=== PATIENT | male | born 1960 | race Caucasian/White ===

== ENCOUNTER 2020-08-13 10:36 | Outpatient (CLI) | payer MEDICARE, SELFPAY ==
--- NOTE | ~2020-08-13 | MR_ITS ---
EXAMINATION: MR humerus RT wo con DATE: 08/13/2020 12:12 INDICATION: Biceps tendon rupture TECHNIQUE: Magnetic resonance imaging (MRI) of the right humerus/upper arm was performed without intr avenous contrast. A marker was placed over the mass. Sequences included axial, sagittal and coronal T1-weighted FSE and fluid sensitive FSE STIR. COMPARISON: None. FINDINGS: Full-thickness tear of the long head of the biceps tendon which is retracted distally approximately 1 0 cm below the cephalad margin of the intertubercular groove. There is mild increased muscle signal a nd small amount of proximal epimysial fluid about the long head of the muscle belly. The visualized portion of the more distal biceps brachii tendon appears normal. Moderate to severe glenohumeral oste oarthritis with moderate size marginal osteophytes about the humeral head. There are small foci of ma gnetic field artifact along the anterior and inferior glenoid likely related to prior labral repair. There appears be diffuse labral tear/degeneration over assessment is not considered diagnostic on the larger field of view images of the upper arm as opposed to smaller field of view of a standard [facility] MRI. There is tendinopathy and likely partial tear along the lesser tuberosity footplate of the s ubscapularis tendon with asymmetric mild fatty atrophy of the subscapularis muscle belly relative to the remainder of the rotator cuff musculature. Small right glenohumeral joint effusion. IMPRESSION: 1. Complete tear of the long head biceps tendon with caudal retraction of the tear margin to [address] to the proximal margin of the intertubercular groove. 2. Moderate to severe right glenohumeral osteoarthritis with small joint effusion. 3. Likely diffuse right glenoid labral tear/degeneration with changes of prior tear at the anterior a nd inferior glenoid. Assessment of the labrum is however not considered diagnostic due to the signifi cantly lower resolution than a standard shoulder MRI resulting from the significantly larger field of view of imaging. Reviewed, dictated and finalized at location A. IMPRESSION: 1. Complete tear of the long head biceps tendon with caudal retraction of the t ear margin to 10 cm distal to the proximal margin of the intertubercular groove . 2. Moderate to severe right glenohumeral osteoarthritis with small joint effusi on. 3. Likely diffuse right glenoid labral tear/degeneration with changes of prior tear at the anterior and inferior glenoid. Assessment of the labrum is however not considered diagnostic due to the significantly lower resolution than a [facility] shoulder MRI resulting from the significantly larger field of view of imag ing.
== END 2020-08-13 10:37 ==
PROVIDERS: PCP Physician Assistant; Visit Provider Physician Assistant
DX: M66.829 Spontaneous rupture of other tendons, unspecified upper arm (principal); S46.111A Strain of muscle, fascia and tendon of long head of biceps, right arm, initial encounter; M19.011 Primary osteoarthritis, right shoulder; M25.411 Effusion, right shoulder
CPT/HCPCS: 73218

== ENCOUNTER 2024-08-05 15:19 | Outpatient (CLI) | payer MEDICARE, SELFPAY ==
--- NOTE | ~2024-08-05 | US_ITS ---
LEFT LOWER EXTREMITY VENOUS ULTRASOUND Ordering provider: Naseem Shaffer, TK History: . lt leg swelling . Comparison: None. FINDINGS: --COMMON FEMORAL: Patent and free of thrombus. Normal compressibility, phasic flow and augmentation. --PROXIMAL SUPERFICIAL FEMORAL: Patent and free of thrombus. Normal compressibility, phasic flow and augmentation. --DISTAL SUPERFICIAL FEMORAL: Patent and free of thrombus. Normal compressibility, phasic flow and au gmentation. --POPLITEAL: Patent and free of thrombus. Normal compressibility, phasic flow and augmentation. --POSTERIOR TIBIAL: Patent and free of thrombus. Normal compressibility, phasic flow and augmentation . Lymph node is seen in the left groin measuring 4 x 0.8 x 2.3 cm. IMPRESSION: Negative left lower extremity venous US. No deep vein thrombosis. Reviewed, dictated and finalized at location A.
--- NOTE | ~2024-08-05 | XR_ITS ---
XR knee LT 3V Ordering provider: Naseem Shaffer, PA History: . Lt leg swelling ACUTE NON INJ CHRONIC PAIN LAT TO PATELLAR . Comparison: None. FINDINGS: BONES: No acute fracture or dislocation. JOINT SPACES: Normal. SOFT TISSUES: Normal. IMPRESSION: No acute osseous abnormality left knee. Reviewed, dictated and finalized at location A.
--- OUTSIDE RECORDS SUMMARY | 2024-08-05 17:46 | XMS_ITS | Continuity of Care Document ---
Author Organization [facility] ([facility]) Address [address] [place] [address] Care Team Providers Care Silk Screen Printer Helper Name Role Phone JAYLEN CHAVARRIA Primary Care Provider [phone] Assessment No assessment recorded. Plan of Treatment Reminders Order Date Submit Date Provider Last Modified By Organization Details Last Modified Time Details Appointments None recorded. Lab lipid panel, serum 2024 025 [facility], [address] [place] [address], [facility] [address], [place], [address], 5 10:14:07 CBC w/ auto diff 2024 025 [facility], [address] [place] [address], [address], [place], [address], 5 10:14:13 CMP, serum or plasma 2024 025 [facility], [address] [place] [address], [facility] [address], [place], [address], 5 10:14:09 HbA1c (hemoglobin A1c), blood 2024 025 [facility], [address] [place] [address], [address], [place], [address], 5 10:14:11 vitamin D, 25-hydroxy, total, serum 2024 025 [facility], [address] [place] [address], [facility] [address], [place], [address], 10:14:14 HIV 1 + 2, meaningful use set 2024 025 [facility], [address] [facility], [address], [place], [address], 10:14:16 TSH, ultra-sensi tive, serum 2024 025 [facility], [address] [facility] [address], [address], [place], [address], 10:14:10 Referral None recorded. Procedures None recorded. Surgeries None recorded. Imaging XR, knee, 3 view 2024 025 [facility] ([facility]), [facility], [place], [address], 17:43:53 US, duplex, venous, lower extremity, complete 2024 025 [facility], [address], [place], [address], 17:28:37 Medication Orders omeprazole 40 mg capsule,del ayed release 2024 025 [facility], [address] [place] [address], [id number], 17:19:34 Patient TargetsNo targets recorded. Patient Instructions Encounter Date Encounter Id Patient Instructions Last Modified By Organization Details Last Modified Time 08/04/2024 [id number] A healthy lifest yle: care instructions [email or web address] Not available 08/04/2024 16:49:55 gastroesophageal reflux disease (GERD): care instructions [email or web address] Not available 08/04/2024 16:49:55 Reason for Referral None Reported. Results Created Date Observation Date Name Description Value Unit Range Abnormal Flag Note LastModifiedBy Organization Detail LastModifiedTime 08/06/192025 US, duple x, venou s, lower extre mity, compl ete No observ ation record ed. [address], [place], [address], 08/05/2024 17:28:37 08/06/19 25 08/05/2024 US, duple x, venou s, lower extre mity, compl ete No observ ation record ed. [address], [place], [address], 08/05/2024 17:30:32 08/06/19 25 08/05/2024 XR, knee, 3 view No observ ation record ed. [address] [facility], [place], [address], 08/05/2024 17:43:53 08/06/19 25 08/05/2024 XR, knee, 3 view No observ ation record ed. [address] [facility], [place], [address], 08/05/2024 18:13:45 Result Notes None recorded. Problems Name Problem SNOMED Code Status Onset Date Resolution Date Notes Provider Name and Address Organization Details Recorded Time Depressi ve disorder 90525862 Active 2017 Soheila Pugh PA-C Attn: Accounting ,[address] [place], [address] , [facility] 8 15:59:40 Vitamin D deficien cy 81554764 Active 2017 Soheila Pugh PA-C Attn: Accounting ,[address] [place], [address] , [facility] 8 14:00:22 Leukocyt osis 441805810 Active 2017 Soheila Pugh PA-C Attn: Accounting ,[address] [place], [address] , [facility] 8 15:53:48 Upper chest pain 899780885 Completed 201712/15/2018 TK CRUMP Attn: Accounting ,[address] [facility], [place], [address] , [place] [facility] 9 12:21:16 Thoracic back pain 914731957 Active 2017 Tone Velazquez MD Attn: Accounting ,[address] [facility], [place], [address] , [place] [facility] 8 17:08:22 Ankle pain 374344858 Active 2017 Soheila Pugh PA-C Attn: Accounting ,[address] [facility], [place], [address] , [place] [facility] 8 09:08:58 Prostate specific antigen above referenc e range 502988973 Active 2018 Was 1.8 on 12/15/18 TK CRUMP Attn: Accounting ,[address] [place], [address] , [place] [facility] 9 08:42:33 Gastroes ophageal reflux disease 320788132 Active 2023 SWAPNA FOX PA-C Attn: Accounting ,[address] [facility], [place], [address] , [place] [facility] 4 16:01:33 Dizzines s 590645081 Active Soheila Pugh PA-C Attn: Accounting ,[address] [place], [address] , [place] [facility] 5 18:08:05 Fracture of cervical spine 978433166 Active Occured 2010 - 2013 Soheila Pugh PA-C Attn: Accounting ,[address] [facility], [place], [address] , [place] [facility] 5 14:30:49 Eczema 07047910 Active Soheila Pugh PA-C Attn: Accounting ,[address] [facility], [place], [address] , [place] [facility] 5 21:00:50 Blood glucose outside referenc e range 403189178 Active 5.7 on 12/15/18 TK CRUMP Attn: Accounting ,[address] [facility], [place], [address] , [facility] 9 08:39:34 Tobacco dependen ce syndrome 36117739 Active Soheila Pugh PA-C Attn: Accounting ,[address] [facility], [place], [address] , [facility] 6 16:26:02 Hand pain 27661824 Active Soheila Pugh PA-C Attn: Accounting ,[address] [facility], [place], [address] , [facility] 5 14:20:39 Hypercho lesterol emia 58041256 Active Soheila Pugh PA-C Attn: Accounting ,[address] [facility], [place], [address] , [facility] 6 14:09:54 Problem Notes None recorded. Procedures Surgical History Date Name Laterality Status Provider Name and Address Organization Details Recorded Time 02/25/2013 Other completed [facility] 12/15/2014 16:24:37 02/25/1997 Other completed [facility] 12/15/2014 16:24:37 Imaging Results None recorded. Procedure Notes None recorded. Medical Equipment None Reported. Allergies No known drug allergies Medications Name Sig Start Date Stop Date Status Note LastModified by Organization Details LastModified Time cyclobenzap rine 10 mg tablet Take 1 tablet 3 times a day by oral route as needed for 14 days. 09/23 completed Not Available Not Available Not Available atorvastati n 40 mg tablet TAKE 1 TABLET BY MOUTH IN THE EVENING FOR CHOLESTER OL 10/08 completed Not Available Not Available Not Available prednisone 10 mg tablet TAKE ONE TABLET BY MOUTH THREE TIMES A DAY FOR 7 DAYS, TAPER TO 1 TABLET ONCE DAILY FOR 7 DAYS. TAKE WITH FOOD. NO NSAIDS WHILE ON STEROIDS. 09/23 completed Not Available Not Available Not Available ketoconazol e 2 % shampoo APPLY TO THE AFFECTED AREA(S), LATHER, LEAVE IN PLACE FOR 5 MINUTES, AND THEN RINSE OFF WITH WATER BY TOPICAL ROUTE TWICE PER WEEK X 8 WEEKS 12/16 completed Not Available Not Available Not Available triamcinolo ne acetonide 0.5 % topical cream APPLY A THIN LAYER TO THE AFFECTED AREA(S) BY TOPICAL ROUTE 2 TIMES PER DAY 01/01 completed Not Available Not Available Not Available ibuprofen 800 mg tablet 01/01 completed Not Available Not Available Not Available hydrocodone 5 mg-acetamin ophen 325 mg tablet Take 1 tablet every 12 hours by oral route as needed for 7 days. 10/08 completed Not Available Not Available Not Available clobetasol 0.05 % topical cream APPLY A THIN LAYER TO THE AFFECTED AREA(S) BY TOPICAL ROUTE 2 TIMES PER DAY X 7 DAYS 12/16 completed Not Available Not Available Not Available triamcinolo ne acetonide 0.5 % topical ointment APPLY GRAM TOPICALLY TO THE AFFECTED AREA TWICE DAILY 09/23 completed Not Available Not Available Not Available omeprazole 40 mg capsule,del ayed release Take 1 capsule every day by oral route as needed for 90 days. 2024 active Not Available Not Available Not Avai lable aspirin 81 mg tablet,ariel yed release Take 1 tablet every day by oral route as directed for 30 days. 2022 active Not Available Not Available Not Avai lable famotidine 20 mg tablet TAKE ONE TABLET BY MOUTH TWICE DAILY. 10/08 completed Not Available Not Available Not Available hydrocodone 7.5 mg-acetamin ophen 325 mg tablet 01/01 completed Not Available Not Available Not Available cephalexin 500 mg capsule 01/01 completed Not Available Not Available Not Available Vitamin D2 1,250 mcg (50,000 unit) capsule TAKE 1 CAPSULE(S ) EVERY WEEK BY ORAL ROUTE. 12/16 completed Not Available Not Available Not Available amoxicillin 875 mg-potassiu m clavulanate 125 mg tablet 01/01 completed Not Available Not Available Not Available Vitals Date Recorded Body height Body mass index (BMI) Body weight Oxygen saturation Oxygen saturation in Arterial blood by Pulse oximetry Heart rate Systolic blood pressure Diastolic blood pressure Provider Name and Address Organization Details Last Updated DateTime 5 180.34 cm 27.8 kg/m2 19802.8 8 g 99 % 99 % 75 /min 110 mm[Hg] 70 mm[Hg] Kasia Lainez MA [place] 16:09:24 Social History Question Answer Notes LastModified by Organizat ion Details LastModified Time Tobacco Smoking Status Current Every Day Smoker Nitesh Cardona MA null, [place] 12/15/2014 16:24:37 What Is Your Level Of Caffeine Consumption? Heavy Information not available 12/15/2014 What Type Of Diet Are You Following? REGULAR Information not available 12/15/2014 Education 12 Information no t available 12/15/2014 Live Alone Or With Others? Alone Information not available 12/15/2014 What Was The Date Of Your Most Recent Tobacco Screening? 09/24/2023 [email or web address] Information not available 09/24/2023 How Many Children Do You Have? 1 Information not available 12/15/2014 Are You Sexually Active? No Information not available 12/15/2014 How Much Tobacco Do You Smoke? 0.5 PPD [email or web address] Information not available 12/15/2014 On What Date Was Tobacco Cessation Counseling Provided? 10/08/2022 [email or web address] Information not available 10/08/2022 How Many Years Have You Smoked Tobacco? 47 [email or web address] Information not available 12/15/2014 Sex: Unknown Functional Status Question Answer Note LastModified by Organizat ion Details LastModified Time What is your level of alcohol consumption? None Information not available 12/15/2014 Are you currently employed? No Information not available 12/15/2014 What is your occupation? unemployed Information not available 12/15/2014 Mental Status None recorded. Family History Relationship Description Onset Age of this Age Resolved Age Notes LastModified by Organization Details LastModified Time Mother Hypertensive disorder Not available 2015 14:23:08 Father Malignant neoplasm of bone [email or web address] Not available 2015 14:23:08 Sister Hypertensive disorder [email or web address] Not available 2015 14:23:08 Sister Malignant tumor of breast [email or web address] Not available 2015 14:23:08 Brother Heart disease [email or web address] Not available 2015 14:23:08 Brother Hypertensive disorder Not available 2015 14:23:08 Brother Malignant neoplasm of prostate [email or web address] Not available 2015 14:23:08 Medical History Condition Response Acid Reflux (GERD) Y Other Y Headaches Y Depression Y Immunizations Vaccine Type Date Status Note Provider Nam e and Address Organization Details Recorded Time zoster recombinant 4 completed Not Available [facility] 08/04/2024 15:47:35 Influenza, split virus, quadrivalent, preservative 8 completed Not Available [facility] 03/14/2019 02:36:32 Tdap 8 completed Not Available [facility] 03/14/2019 02:36:56 Influenza, split virus, quadrivalent, preservative 9 completed Not Available [facility] 03/14/2019 02:47:16 Influenza, split virus, quadrivalent, preservative 0 completed Norma Stacy [place] null, [place] [facility] 12/18/2019 08:57:31 influenza, unspecified formulation 6 completed Tara Ortiz [place], [place] [facility] 01/31/2016 15:09:36 Influenza, split virus, quadrivalent, preservative 3 completed India Jones [place], [place] [facility] 12/25/2022 13:23:26 Influenza, split virus, quadrivalent, preservative 5 completed Not Available [facility] 03/14/2019 02:41:24 Influenza, split virus, trivalent, preservative 4 completed India Jones [place] null, [place] [facility] 12/04/2023 08:02:26 Past Encounters Encounter ID Performer Location Encounter Start Date Encounter Closed Date Diagnosis/Indication Diagnosis SNOMED-CT Code Diagnosis ICD10 Code Diagnosis Note [id number] Samantha Tesfaye MD [facility] (Adult Med) [address] [place] [address] 08/04/2024 15:41:44 08/05/2024 10:07:42 Depression screening 496807246 Z13.31 PHQ9- Negative (2 out of 27) Mental [facility] screening 094278998 Z13.30 GAD7- Negative (2 out of 21) Overweight 506183052 E66 .3 BMI 27.8 Swelling o f left lower limb 864093683 M79.89 Advised patient to go to hospital today for STAT US for possible DVTU/S ordered- pt wanting imaging done at [facility] Hypercholesterolemia 136 23603 E78.2 Gastroesop hageal reflux disease 384142494 K21.9 C/W omeprazole 40mg Adult heal th examination 097275443 Z00.00 routine labs ordered Pain of le ft knee joint 3519411758 29703 M25.562 XR ordered Health Concerns Section Related Observation LastModified by Organization Detai ls LastModified Time None Recorded Concern Status LastModified by Organization Details LastModified Time None Recorded Payers Encounter Date Sequence Insurance Name Policy Number Policy Ontiveros Covered Member ID Ontiveros Member ID Guarantor Name 08/04/[address] [facility] (MEDICARE REPLACEMENT/A DVANTAGE - HMO) [id number] Aurelio Hemphill [id number] Aurelio Hemphill Notes Date Note Type Note Provider Name and Address Organization Details Recorded Time 08/04/2024 text/html 64 y/o M here c/o L knee pain. Pt states knee pain started after having wallet in L back pocket and sitting on it. Pt states pain started around 05/28/24. He started wearing a knee type brace, which he states relieves the pain d/t the pressure on his knee. States the pain travels from the lateral aspect of his knee to the dorsal aspect towards his patella.Pt then stated his leg has been swelling as well. He has noticed his L leg swelling more than normal. His R leg stays normal, but his L leg swells from the knee down. It has progressively gotten worse and swells more as the day goes by. Pt denies pain with walking. Pt also denies SOB, CP, MOHAMUD.Pt is also requesting refills on his GERD medication and wanting labs done today as he is fasting. SWAPNA FOX PA-C Attn: Accounting,[address] [facility], [place], [address], [facility] 08/04/2024 20:56:14
--- OUTSIDE RECORDS SUMMARY | 2024-08-05 17:46 | XMS_ITS | Data Portability ---
Author Organization [facility] ROMINASarai Address [address] [place] [address] Care Team Providers Care Clothes Designer Name Role Phone JAYLEN CHAVARRIA Primary Care Provider Assessment No assessment recorded. Plan of Treatment Reminders Order Date Submit Date Provider Last Modified By Organization Details Last Modified Time Details Appointments None recorded. Lab lipid panel, serum 2024 025 [facility], [facility] [address], [place], [address], 5 10:14:07 CBC w/ auto diff 2024 025 NISREEN CODI, [address] [place] [address], [facility] [address], [place], [address], 5 10:14:13 CMP, serum or plasma 2024 025 [facility]EN LABANGEL, [facility], [facility] [address], [place], [address], 5 10:14:09 HbA1c (hemoglobin A1c), blood 2024 025 NISREEN KINCAID, [facility] [address], [address], [place], [address], 5 10:14:11 vitamin D, 25-hydroxy, total, serum 2024 025 NISREEN CODI, [address] [place], [place] [address]chris Fabrizio, [facility] [address], [place], [address], 5 10:14:14 HIV 1 + 2, meaningful use set 2024 025 NISREEN KINCAID, [address], [address], [place], [address], 5 10:14:16 TSH, ultra-sensi tive, serum 2024 025 NISREEN KINCAID, [address], [address], [place], [address], 5 10:14:10 HbA1c (hemoglobin A1c), blood 2022 023 NISREEN KINCAID, [address], [address], [place], [address], 3 08:31:18 CMP, serum or plasma 2022 023 NISREEN KINCAID, [address], [place], [address], 3 06:14:13 lipid panel, serum 2022 023 NISREEN KINCAID, [address], [address], [place], [address], 3 06:14:12 CBC w/ auto diff 2022 023 NISREEN KINCAID, [address], [place], [address], 3 06:14:14 PSA, total, serum or plasma 2022 023 NISREEN KINCAID, [address], [address], [place], [address], 3 08:31:21 vitamin D, 25-hydroxy, total, serum 2022 023 [facility], [address], [address], [place], [address], 3 08:31:22 Referral None recorded. Procedures None recorded. Surgeries None recorded. Imaging XR, knee, 3 view 2024 025 [facility] [address], [place], [address], 5 17:43:53 US, duplex, venous, lower extremity, complete 2024 025 [facility], [address], [place], [address], 5 17:28:37 LDCT, chest, for lung cancer screening 2022 023 [facility] ([facility]), [address] [place], [address], 3 11:19:15 Medication Orders omeprazole 40 mg capsule,del ayed release 2024 025 [facility], [address], [place], [id number], 5 17:19:34 omeprazole 40 mg capsule,del ayed release 2023 024 [facility], [address] [place] [address], [id number], 4 16:17:03 aspirin 81 mg tablet,ariel yed release 2022 023 [facility], [address] [place], [place], [id number], 3 09:44:45 omeprazole 40 mg capsule,del ayed release 2022 023 [facility], [address], [place], [id number], 16:02:46 Patient TargetsNo targets recorded. Patient Instructions Encounter Date Encounter Id Patient Instructions Last Modified By Organization Details Last Modified Time 10/08/2022 [id number] A healthy lifest yle: care instructions [email or web address] Not available 10/08/2022 15:15:39 09/24/2023 [id number] A healthy lifest yle: care instructions [email or web address] Not available 09/24/2023 16:02:06 12/03/2023 [id number] influenza (flu) vaccine: care instructions [email or web address] Not available 12/03/2023 12:32:24 A healthy lifest yle: care instructions [email or web address] Not available 12/03/2023 12:32:24 08/04/2024 [id number] A healthy lifest yle: care instructions [email or web address] Not available 08/04/2024 16:49:55 gastroesophageal reflux disease (GERD): care instructions [email or web address] Not available 08/04/2024 16:49:55 Reason for Referral None Reported. Results Created Date Observation Date Name Description Value Unit Range Abnormal Flag Note LastModifiedBy Organization Detail LastModifiedTime 12/22/1912/21/2022 LIPID PANEL cholesterol, total 170 mg/dL 100-19 9 Not Available [facility] [address] [place], [address], 12/22/2022 06:14:12 12/22/1912/21/2022 LIPID PANEL triglyceride s 85 mg/dL 0-149 Not Available [facility] [address] [place], [address], 12/22/2022 06:14:12 12/22/1912/21/2022 LIPID PANEL HDL cholesterol 38 mg/dL 40-999 below low normal Not Available [facility] [address] [place], [address], 12/22/2022 06:14:12 12/22/1912/21/2022 LIPID PANEL VLDL cholesterol felipa 17 mg/dL 5-40 Not Available [facility] [address] [place] [address], [address], 12/22/2022 06:14:12 12/22/1912/21/2022 LIPID PANEL LDL chol calc (nih) 126 mg/dL 0-99 above high normal Not Available [facility] [address] [place], [address], 12/22/2022 06:14:12 12/22/1912/21/2022 COMP. METAB OLIC PANEL (14) glucose 80 mg/dL 70-99 Not Available [facility] [address] [place] [address], [address], 12/22/2022 06:14:13 12/22/1912/21/2022 COMP. METAB OLIC PANEL (14) BUN 15 mg/dL 8-27 Not Available [facility] [address] [place] [address], [address], 12/22/2022 06:14:13 12/22/1912/21/2022 COMP. METAB OLIC PANEL (14) creatinine 1.00 mg/dL 0.76-1 .27 Not Available [facility] [address] [place] [address], [address], 12/22/2022 06:14:13 12/22/1912/21/2022 COMP. METAB OLIC PANEL (14) eGFR 86 >=60 Units for eGFR value s are mL/mi n/1.7 3 The eGFR Calcu latio n has not been valid ated for patie nts under the age of 18. If test resul ts are displ ayed for a patie nt under the age of 18, disre aydin that value . Not Available [facility] [address] [place] [address], [address], 12/22/2022 06:14:13 12/22/19 23 12/21/2022 COMP. METAB OLIC PANEL (14) BUN/creatini ne ratio 15 10-24 Not Available [facility] [address] [place], [address], 12/22/2022 06:14:13 12/22/1912/21/2022 COMP. METAB OLIC PANEL (14) sodium 143 mmol/ L 134-14 4 Not Available [facility] [address] [place], [address], 12/22/2022 06:14:13 12/22/1912/21/2022 COMP. METAB OLIC PANEL (14) potassium 5.2 mmol/ L 3.5-5. 2 Not Available [facility] [address] [place], [address], 12/22/2022 06:14:13 12/22/1912/21/2022 COMP. METAB OLIC PANEL (14) chloride 105 mmol/ L 96-106 Not Available [facility] [address] [place], [address], 12/22/2022 06:14:13 12/22/1912/21/2022 COMP. METAB OLIC PANEL (14) carbon dioxide, total 25 mmol/ L 20-29 Not Available [facility] [address] [place], [address], 12/22/2022 06:14:13 12/22/1912/21/2022 COMP. METAB OLIC PANEL (14) calcium 9.8 mg/dL 8.6-10 .2 Not Available [facility] [address] [place], [address], 12/22/2022 06:14:13 12/22/1912/21/2022 COMP. METAB OLIC PANEL (14) protein, total 7.3 g/dL 6.0-8. 5 Not Available [facility] [address] [place], [address], 12/22/2022 06:14:13 12/22/1912/21/2022 COMP. METAB OLIC PANEL (14) albumin 4.7 g/dL 3.8-4. 9 Not Available [facility] [address] [place] [address], [address], 12/22/2022 06:14:13 12/22/19 23 12/21/2022 COMP. METAB OLIC PANEL (14) globulin, total 2.6 g/dL 1.5-4. 5 Not Available [facility] [address] [place] [address], [address], 12/22/2022 06:14:13 12/22/1912/21/2022 COMP. METAB OLIC PANEL (14) A/G ratio 1.8 1.2-2. 2 Not Available [facility] [address] [place] [address], [address], 12/22/2022 06:14:13 12/22/1912/21/2022 COMP. METAB OLIC PANEL (14) bilirubin, total 0.6 mg/dL 0.0-1. 2 Not Available [facility] [address] [place], [address], 12/22/2022 06:14:13 12/22/1912/21/2022 COMP. METAB OLIC PANEL (14) alkaline phosphatase 80 IU/L 44-121 Not Available [facility] [address] [place] [address], [address], 12/22/2022 06:14:13 12/22/1912/21/2022 COMP. METAB OLIC PANEL (14) AST (SGOT) 16 IU/L 0-40 Not Available [facility] [address] [place], [address], 12/22/2022 06:14:13 12/22/19 23 12/21/2022 COMP. METAB OLIC PANEL (14) ALT (SGPT) 15 IU/L 0-44 Not Available [facility] [address], [place], [address], 12/22/2022 06:14:13 12/22/1912/21/2022 CBC WITH DIFFE RENTI AL/PL ATELE T WBC 10.1 x10e3 /uL 3.4-10 .8 Not Available [facility] [address] [place], [address], 12/22/2022 06:14:14 12/22/1912/21/2022 CBC WITH DIFFE RENTI AL/PL ATELE T RBC 4.87 x10e6 /uL 4.14-5 .80 Not Available [facility] [address] [place], [address], 12/22/2022 06:14:14 12/22/1912/21/2022 CBC WITH DIFFE RENTI AL/PL ATELE T hemoglobin 14.4 g/dL 13.0-1 7.7 Not Available [facility] [address] [place], [address], 12/22/2022 06:14:14 12/22/1912/21/2022 CBC WITH DIFFE RENTI AL/PL ATELE T hematocrit 44.8 % 37.5-5 1.0 Not Available [facility] [address] [place], [address], 12/22/2022 06:14:14 12/22/1912/21/2022 CBC WITH DIFFE RENTI AL/PL ATELE T MCV 92 fL 79-97 Not Available [facility] [address] [place], [address], 12/22/2022 06:14:14 12/22/1912/21/2022 CBC WITH DIFFE RENTI AL/PL ATELE T MCH 29.6 pg 26.6-3 3.0 Not Available [facility] [address] [place], [address], 12/22/2022 06:14:14 12/22/1912/21/2022 CBC WITH DIFFE RENTI AL/PL ATELE T MCHC 32.1 g/dL 31.5-3 5.7 Not Available [facility] [address] [place], [address], 12/22/2022 06:14:14 12/22/1912/21/2022 CBC WITH DIFFE RENTI AL/PL ATELE T RDW 14.7 % 11.5-1 4.5 above high normal Not Available [facility] [address] [place], [address], 12/22/2022 06:14:14 12/22/1912/21/2022 CBC WITH DIFFE RENTI AL/PL ATELE T platelets 441 x10e3 /uL 150-45 0 Not Available [facility] [address] [place], [address], 12/22/2022 06:14:14 12/22/1912/21/2022 CBC WITH DIFFE RENTI AL/PL ATELE T neutrophils 63 % notest b. Not Available [facility] [address] [place], [address], 12/22/2022 06:14:14 12/22/1912/21/2022 CBC WITH DIFFE RENTI AL/PL ATELE T lymphs 26 % notest b. Not Available [facility] [address] [place], [address], 12/22/2022 06:14:14 12/22/1912/21/2022 CBC WITH DIFFE RENTI AL/PL ATELE T monocytes 7 % notest b. Not Available [facility] [address] [place], [address], 12/22/2022 06:14:14 12/22/1912/21/2022 CBC WITH DIFFE RENTI AL/PL ATELE T eos 3 % notest b. Not Available [facility] [address] [place], [address], 12/22/2022 06:14:14 12/22/1912/21/2022 CBC WITH DIFFE RENTI AL/PL ATELE T basos 1 % notest b. Not Available [facility] [address] [place], [address], 12/22/2022 06:14:14 12/22/1912/21/2022 CBC WITH DIFFE RENTI AL/PL ATELE T neutrophils (absolute) 6.3 x10e3 /uL 1.4-7. 0 Not Available [facility] [address] [place], [address], 12/22/2022 06:14:14 12/22/1912/21/2022 CBC WITH DIFFE RENTI AL/PL ATELE T lymphs (absolute) 2.6 x10e3 /uL 0.7-3. 1 Not Available [facility] [address] [place], [address], 12/22/2022 06:14:14 12/22/1912/21/2022 CBC WITH DIFFE RENTI AL/PL ATELE T monocytes(ab solute) 0.7 x10e3 /uL 0.1-0. 9 Not Available [facility] [address] [place], [address], 12/22/2022 06:14:14 12/22/1912/21/2022 CBC WITH DIFFE RENTI AL/PL ATELE T eos (absolute) 0.3 x10e3 /uL 0.0-0. 4 Not Available [facility] [address] [place], [address], 12/22/2022 06:14:14 12/22/1912/21/2022 CBC WITH DIFFE RENTI AL/PL ATELE T baso (absolute) 0.1 x10e3 /uL 0.0-0. 2 Not Available [facility] [address] [place], [address], 12/22/2022 06:14:14 12/22/1912/21/2022 CBC WITH DIFFE RENTI AL/PL ATELE T immature granulocytes 0.4 % notest b. Not Available [facility] [address] [place], [address], 12/22/2022 06:14:14 12/22/1912/21/2022 CBC WITH DIFFE RENTI AL/PL ATELE T immature grans (abs) 0.0 x10e3 /uL 0.0-0. 1 Not Available [facility] [address] [place], [address], 12/22/2022 06:14:14 12/22/1912/21/2022 CBC WITH DIFFE RENTI AL/PL ATELE T NRBC 0 % 0-0 Not Available [facility] [address] [place], [address], 12/22/2022 06:14:14 12/22/1912/22/2022 HEMOG LOBIN A1C hemoglobin A1C 6.0 % 4.8-5. 6 above high normal Predi abete s: 5.7 - 6.4 Diabe chepe: >6.4 Glyce brody contr ol for adult s with diabe chepe: <7.0 Not Available [facility] ([facility]) [address] [facility], [place], [address], 12/22/2022 08:31:18 12/22/1912/22/2022 PROST ATE-S PECIF IC AG prostate specific Ag 2.1 NG/mL 0.0-4. 0 Jose Enrique ECLIA metho dolog y. Accor yessenia to the Ameri can Urolo gical Assoc iatio n, Serum PSA shoul d decre ase and remai n at undet ectab le level s after radic al prost atect katerina. The AUA defin es bioch emica l recur rence as an initi al PSA value 0.2 ng/mL or great er follo wed by a subse quent confi rmato ry PSA value 0.2 ng/mL or great er. Value s obtai weston with diffe rent assay metho ds or kits canno t be used inter augustin eably . Resul ts canno t be inter prete d as absol [place] evide nce of the prese nce or absen ce of [facility] dustin disea se. Not Available [facility] ([facility]) [address], [place], [address], 12/22/2022 08:31:21 12/22/1912/22/2022 VITAM IN D, 25-HY DROXY vitamin D, 25-hydroxy 29.7 NG/mL 30.0-1 00.0 below low normal Vitam in D defic iency has been defin ed by the Insti tute of Medic ine and an Endoc rine Socie ty pract ice guide line as a level of serum 25-OH vitam in D less than 20 ng/mL (1,2) . The Endoc rine Socie ty went on to furth er defin e vitam in D insuf ficie ncy as a level betwe en 21 and 29 ng/mL (2). 1. IOM (Inst itute of Medic ine). 2009. Dieta ry refer ence intak es for calci um and D. Timothy posadas [place]: The [facility] . 2. Varsha pereyra MF, Linda valdivia [place], [place] off-F errar i BARRY, et al. Evalu ation , treat ment, and preve ntion of vitam in D defic iency : an Endoc rine Socie ty clini felipa pract ice guide line. JCEM. 2010; 96(7) :1911 -30. Not Available [facility] ([facility]) [address], [place], [address], 12/22/2022 08:31:22 11/02/19 23 10/31/2022 LDCT, chest , for lung cance r scree nery No observ ation record ed. [facility] [address] [place], [address], 11/05/2022 14:07:19 08/06/19 25 08/05/2024 US, duple x, venou s, lower extre mity, compl ete No observ ation record ed. [address], [place], [address], 08/05/2024 17:28:37 08/06/19 25 08/05/2024 US, duple x, venou s, lower extre mity, compl ete No observ ation record ed. [address], [place], [address], 08/05/2024 17:30:32 08/06/19 25 08/05/2024 XR, knee, 3 view No observ ation record ed. [address], [place], [address], 08/05/2024 17:43:53 08/06/19 25 08/05/2024 XR, knee, 3 view No observ ation record ed. [address], [place], [address], 08/05/2024 18:13:45 Result Notes None recorded. Problems Name Problem SNOMED Code Status Onset Date Resolution Date Notes Provider Name and Address Organization Details Recorded Time Depressi ve disorder 08396149 Active 2017 Soheila Pugh PA-C Attn: Accounting ,[address] [facility], [place], [address] , [place] - [facility] 8 15:59:40 Vitamin D deficien cy 83037571 Active 2017 Soheila Pugh PA-C Attn: Accounting ,[address] [facility], [place], [address] , [facility] - [facility] 8 14:00:22 Leukocyt osis 621605195 Active 2017 Soheila Pugh PA-C Attn: Accounting ,[address] [facility], [place], [address] , [place] - [facility] 8 15:53:48 Upper chest pain 212845506 Completed 201712/15/2018 TK CRUMP Attn: Accounting ,[address] [place], [address] , [place] [facility] 9 12:21:16 Thoracic back pain 209516356 Active 2017 Tone Velazquez MD Attn: Accounting ,[address] [facility], [place], [address] , [place] [facility] 8 17:08:22 Ankle pain 642825402 Active 2017 Soheila Pugh PA-C Attn: Accounting ,[address] [place], [address] , [place] - [facility] 8 09:08:58 Prostate specific antigen above referenc e range 946445355 Active 2018 Was 1.8 on 12/15/18 TK CRUMP Attn: Accounting ,[address] [place], [address] , [place] [facility] 9 08:42:33 Gastroes ophageal reflux disease 662562233 Active 2023 SWAPNA FOX PA-C Attn: Accounting ,[address] [place], [address] , [place] [facility] 4 16:01:33 Dizzines s 871277444 Active Soheila Pugh PA-C Attn: Accounting ,[address] [place], [address] , [place] [facility] 5 18:08:05 Fracture of cervical spine 991659831 Active Occured 2010 - repaired 2013 Soheila Pugh PA-C Attn: Accounting ,[address] [place], [address] , [place] [facility] 5 14:30:49 Eczema 15540473 Active Soheila Pugh PA-C Attn: Accounting ,[address] [facility], [place], [address] , [facility] - SI 5 21:00:50 Blood glucose outside referenc e range 435862546 Active 5.7 on 12/15/18 TK CRUMP Attn: Accounting ,[address] [facility], [place], [address] , [facility] - SI 9 08:39:34 Tobacco dependen ce syndrome 47302808 Active Soheila Pugh PA-C Attn: Accounting ,[address] [place], [address] , [facility] - SI 6 16:26:02 Hand pain 26952575 Active Soheila Pugh PA-C Attn: Accounting ,[address] [facility], [place], [address] , [facility] - SI 5 14:20:39 Hypercho lesterol emia 98705542 Active Soheila Pugh PA-C Attn: Accounting ,[address] [facility], [place], [address] , [facility] - SI 6 14:09:54 Problem Notes None recorded. Procedures Surgical History Date Name Laterality Status Provider Name and Address Organization Details Recorded Time 02/25/2013 Other completed [facility] 12/15/2014 16:24:37 02/25/1997 Other completed [facility] 12/15/2014 16:24:37 Imaging Results None recorded. [...] Updated DateTime 5 180.34 cm 27.8 kg/m2 49893.8 8 g 99 % 99 % 75 /min 110 mm[Hg] 70 mm[Hg] Kasia Lainez MA [facility] 5 16:09:24 Date Recorded Body height Body mass index (BMI) Body weight Oxygen saturation Oxygen saturation in Arterial blood by Pulse oximetry Heart rate Systolic blood pressure Diastolic blood pressure Provider Name and Address Organization Details Last Updated DateTime 4 180.34 cm 29.1 kg/m2 94441.8 1 g 96 % 96 % 79 /min 126 mm[Hg] 76 mm[Hg] India Jones MA [facility] 4 15:33:34 Date Recorded Body height Body mass index (BMI) Body weight Heart rate Oxygen saturation Oxygen saturation in Arterial blood by Pulse oximetry Systolic blood pressure Diastolic blood pressure Provider Name and Address Organization Details Last Updated DateTime 3 180.34 cm 29 kg/m2 76762.2 1 g 86 /min 97 % 97 % 124 mm[Hg] 80 mm[Hg] Laurita Yanez MA [facility] SI 3 14:57:15 Social History Question Answer Notes LastModified by Organizat ion Details LastModified Time Tobacco Smoking Status Current Every Day Smoker Nitesh Cardona MA [facility] 12/15/2014 16:24:37 What Is Your Level [...] Much Tobacco Do You Smoke? 0.5 PPD [email or web address] Information not available 12/15/2014 On What Date Was Tobacco Cessation Counseling Provided? 10/08/2022 [email or web address] Information not available 10/08/2022 How Many Years Have You Smoked Tobacco? 47 [email or web address] Information not available 12/15/2014 Sex: Unknown Functional [...] Organization Details LastModified Time Mother Hypertensive disorder [email or web address] Not available 2015 14:23:08 Father Malignant neoplasm of bone [email or web address] Not available 2015 14:23:08 Sister Hypertensive disorder Not available 2015 14:23:08 Sister Malignant tumor of breast [email or web address] Not available 2015 14:23:08 Brother Heart disease [email or web address] Not available 2015 14:23:08 Brother Hypertensive disorder [email or web address] Not available 2015 14:23:08 Brother Malignant neoplasm of prostate [email or web address] Not available 2015 14:23:08 Medical History Condition Response Other Y Acid Reflux (GERD) Y Depression Y Headaches Y Immunizations Vaccine Type Date Status Note Provider Nam e and Address Organization Details Recorded Time zoster recombinant 4 completed Not Available [facility] 08/04/2024 15:47:35 Influenza, split virus, quadrivalent, preservative 8 completed Not Available [facility] 03/14/2019 02:36:32 Tdap 8 completed Not Available [facility] 03/14/2019 02:36:56 Influenza, split virus, quadrivalent, preservative 9 completed Not Available [facility] 03/14/2019 02:47:16 Influenza, split virus, quadrivalent, preservative 0 completed Norma Stacy MA null, [place] - [facility] 12/18/2019 08:57:31 influenza, unspecified formulation 6 completed Tara Ortiz MA null, [place] - [facility] 01/31/2016 15:09:36 Influenza, split virus, quadrivalent, preservative 3 completed Indiapatel GaldamezJonesJOSÉ MIGUEL Cardenas, [facility] 12/25/2022 13:23:26 Influenza, split virus, quadrivalent, preservative 5 completed Not Available [facility] 03/14/2019 02:41:24 Influenza, split virus, trivalent, preservative 4 completed India JonesJOSÉ MIGUEL, [facility] 12/04/2023 08:02:26 Past Encounters Encounter ID Performer Location Encounter Start Date Encounter Closed Date Diagnosis/Indication Diagnosis SNOMED-CT Code Diagnosis ICD10 Code Diagnosis Note [id number] [facility] [address] [place] [id number] 12/15/2014 16:11:53 12/15/2014 17:15:37 Adult health examination 984273423 Z00.00 Screening for malignant neoplasm of prostate 808470217 Z12.5 Patient consented to tst Screening for malignant neoplasm of colon 610397248 Z12.11 Dizziness 835908923 R42 Eczema 16922614 L30.9 Active or passive immunization 496461433 Z23 [id number] [facility] [address] [place] [id number] 01/11/2015 15:24:54 01/11/2015 18:08:33 Dizziness 391833888 R42 Resolved - has not had any dizzy spells since before our last appointmen t [id number] Merrick Villalpando MD [facility] (Adult Med) [address] [place] [id number] 02/04/2015 14:05:02 02/04/2015 14:31:19 Fracture of cervical spine 414281365 S12.9XXS Now that he has insurance will refer to neurosurge ry Tobacco de pendence syndrome 57657963 F17.290 ASCVD recommenda tion of moderate to high intensity statin still smoking willl recheck labs at next visit Blood gluc ose outside reference range 096982966 R73.09 Has cut back on cappachino [id number] MD [facility] (Adult Med) [address] [place] [id number] 04/08/2015 14:11:38 04/08/2015 14:41:50 Hypercholesterolemia 29269831 E78.0 Will check cholestero l and LFTs today and fill medication s based on this [id number] MD [facility] (Adult Med) [address] [place] [id number] 07/20/2015 14:44:32 07/20/2015 16:27:40 Hypercholesterolemia 96174358 E78.0 Will check levels today - as long as WNL, will prescribe for 6 months Adult heal th examination 171144647 Z00.00 Tobacco de pendence syndrome 81458360 F17.290 ASCVD recommenda tion of moderate to high intensity statin still smoking Will check chest xray [id number] MD [facility] (Adult Med) [address] [place] [id number] 01/31/2016 15:01:01 01/31/2016 15:39:56 Gastroesophageal reflux disease 643266147 K21.9 well controlled with omeprazole - c/w current medication Screening for malignant neoplasm of prostate 203776174 Z12.5 Patient consented to test Hypercholesterolemia 136 93693 E78.2 Will recheck in 6 months Tobacco de pendence syndrome 67321894 F17.290 ASCVD recommenda tion of moderate to high intensity statin still smoking - advised to quit [id number] MD Bobo Ward (Adult Med) [address] [place] [address] 02/28/2017 15:04:29 02/28/2017 16:41:36 Hypercholesterolemia 16036686 E78.2 Will recheck Educated on need to take Atorvastat in daily as patient is at increased risk for CV disease due to 1PPD smoking history. Blood gluc ose outside reference range 925492339 R73.09 Will recheck Tobacco de pendence syndrome 12296556 F17.290 ASCVD recommenda tion of moderate to high intensity statin still smoking 1PPD- advised to quit Advised to start taking daily aspirin Screening for malignant neoplasm of prostate 667341540 Z12.5 Patient consented to test Fatigue 69938049 R53.83 Will check labs Depressive disorder 3548 9007 F32.0 Mild on PHQ-9 Denies SI or HI Fracture o f cervical spine 223272951 S12.9XXS Patient advised that he needs to go back to neurosurge for disability paperwork [id number] MD Bobo Whiting (Adult Med) [address] [place] [phone] 0 10/08/2017 15:14:11 10/09/2017 09:27:35 Thoracic back pain 949078293 M54.6 Upper chest pain 5390928 08 R07.9 Hypercholesterolemia 136 19326 E78.00 Blood gluc ose outside reference range 251192588 R73.09 Vitamin D deficiency 347 55882 E55.9 [id number] MD Bobo Ward (Adult Med) [address] [place] [address] 47141-130 0 01/01/2018 14:37:30 01/02/2018 10:38:11 Administration of influenza vaccine 76785242 Z23 Tobacco de pendence syndrome 98129437 F17.290 ASCVD recommenda tion of moderate to high intensity statin still smoking 1PPD- advised to quit Patient elects to complete LCDT screen for lung cancer at this time Hypercholesterolemia 136 04071 E78.2 Will recheck Educated on need to take Atorvastat in daily as patient is at increased risk for CV disease due to 1PPD smoking history. Screening for malignant neoplasm of prostate 668194087 Z12.5 Patient consented to test Fracture o f cervical spine 307437068 S12.9XXS Patient advised that he needs to go back to neurosurge for disability paperwork Gastroesop hageal reflux disease 143801564 K21.9 well controlled with omeprazole - c/w current medication Vitamin D deficiency 347 53891 E55.9 Leukocytosis 676610200 D 72.829 Will recheck at this time Active or passive immunization 624659879 Z23 Ankle pain 619049800 M25 .571 followed by PT and greatly improving [id number] TK CRUMP (Adult Med) [address] [place] [phone] 0 12/15/2018 11:54:17 12/16/2018 09:00:59 Tobacco dependence syndrome 52836406 F17.290 Smoking 1/2 PPD stillHx of 47 years of 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
== END 2024-08-05 15:20 | disposition home or self-care (01) ==
PROVIDERS: PCP Physician Assistant; Visit Provider Physician Assistant Medical
DX: M79.89 Other specified soft tissue disorders (principal); M25.562 Pain in left knee
CPT/HCPCS: 73562; 93971

== ENCOUNTER 2024-09-04 14:33 | Outpatient (CLI) | payer MEDICARE, SELFPAY ==
--- NOTE | ~2024-09-04 | MR_ITS ---
MRI of the left knee Clinical history: Pain Technique: Coronal proton density and proton density-weighted images, sagittal proton-density and T2 fat-sat images, and axial proton-density fat-saturated images were acquired. Findings: Anterior and posterior cruciate ligaments are intact. Medial collateral ligament and the la teral collateral ligament complex are intact. Popliteus tendon is intact. There is oblique tear of the posterior horn of the medial meniscus. There is horizontal tear of the l ateral meniscus involving the anterior horn, body segment, and probably extending into the posterior horn. There is focal high-grade chondromalacia along the medial patellar facet. There is mild to moderate c hondromalacia the femoral trochlea. There is mild chondral disease of the medial lateral compartments . Bone marrow signals are unremarkable. Extensor mechanism is intact. No joint effusion. Small Faulkner's cyst. Impression: Oblique tear of the posterior horn of the medial meniscus. Horizontal tear of the anterior horn and body of the lateral meniscus, probably extending to the post erior horn as well. Mild degenerative change, as above. Small Faulkner's cyst. Reviewed, dictated and finalized at location M. Impression: Oblique tear of the posterior horn of the medial meniscus. Horizontal tear of the anterior horn and body of the lateral meniscus, probably extending to the posterior horn as well. Mild degenerative change, as above. Small Faulkner's cyst.
== END 2024-09-04 14:34 | disposition home or self-care (01) ==
LOC: MICIMG 14:33
PROVIDERS: PCP Physician Assistant; Visit Provider Physician Assistant Medical
DX: S83.242A Other tear of medial meniscus, current injury, left knee, initial encounter (principal); S83.282A Other tear of lateral meniscus, current injury, left knee, initial encounter; M22.42 Chondromalacia patellae, left knee; M71.22 Synovial cyst of popliteal space [Baker], left knee
CPT/HCPCS: 73721